=== PATIENT | female | born 1975 | race Caucasian/White ===

== ENCOUNTER 2017-12-08 11:32 | Inpatient (IN) | payer MEDICAID ==
[~2017-12-08] VITALS: Ht 154.9 cm; Wt 80.4 kg
[2017-12-08] MEDS ORDERED: LOSARTAN POTASS25 M1 PO (16:14)
[2017-12-08 16:27] LABS: BASOPHIL % 0.2 % (0-2); PLATELET COUNT 352 x10^3mcL (130-400)
[2017-12-08 16:35] LABS: CALCIUM 9.4 mg/dL (8.5-10.1); CARBON DIOXIDE 23.7 mmol/L (21-32); CREATININE SERUM 3.8 mg/dL (0.6-1.0); POTASSIUM SERUM 3.3 mmol/L (3.5-5.1)
[2017-12-08 17:32] VITALS: BP 159/98
[2017-12-08 17:41] VITALS: BP 159/98
[2017-12-08 17:42] LABS: T3 TOTAL 0.71 ng/mL
[2017-12-08 17:43] VITALS: Ht 154.9 cm; Wt 80.4 kg
[2017-12-08 18:08] LABS: FREE T4 1.26 ng/dL (0.76-1.46); FREE THYROXINE INDEX 2.5 ug/dL (1.4-4.5); MAGNESIUM 2.1 mg/dL (1.8-2.4); PHOSPHOROUS 2.9 mg/dL (2.5-4.9); T4(THYROXINE) 7.5 ug/dL (4.7-13.3)
[2017-12-08 18:14] LABS: CHOLESTEROL/HDL RATIO 12.2
[2017-12-08 19:32] LABS: UA SPECIFIC GRAVITY <=1.005 (1.005-1.035); microscopic required? YES; urine erythrocyte 2+ (NEGATIVE)
[2017-12-08 19:56] LABS: AMPHETAMINE QUAL UR NONE DETECTED (NEG <=1000)
[2017-12-08 21:41] VITALS: BP 150/86
[2017-12-09 06:15] LABS: BASOPHIL % 0.3 % (0-2); CALCIUM 8.6 mg/dL (8.5-10.1); CARBON DIOXIDE 22.8 mmol/L (21-32); CREATININE SERUM 3.9 mg/dL (0.6-1.0); PLATELET COUNT 334 x10^3mcL (130-400); POTASSIUM SERUM 3.7 mmol/L (3.5-5.1)
[2017-12-09 06:18] VITALS: BP 146/85
[2017-12-09 06:57] LABS: RED CELL DISTRIBUTION WIDTH 18.8 % (11.5-14.5)
[2017-12-09 11:31] VITALS: BP 155/96
[2017-12-09 15:00] VITALS: BP 138/78
[2017-12-09 20:47] VITALS: BP 84/46
[2017-12-09 22:25] VITALS: BP 96/60
[2017-12-09 23:57] VITALS: BP 92/54
[2017-12-10] VITALS (10 sets, daily range): BP systolic 90–130; BP diastolic 52–76
[2017-12-10 05:49] LABS: PLATELET COUNT 256 x10^3mcL (130-400)
[2017-12-10 06:04] LABS: CARBON DIOXIDE 19.3 mmol/L (21-32); CREATININE SERUM 3.8 mg/dL (0.6-1.0); MAGNESIUM 1.7 mg/dL (1.8-2.4); POTASSIUM SERUM 4.1 mmol/L (3.5-5.1)
[2017-12-10 15:05] LABS: BAND NEUTROPHIL 30 % (0-10); METAMYELOCTE 2 % (0-2); MONOCYTE 3 % (0-7); SEGMENTED NEUTROPHILS 60 % (37-75); rbc morphology (normal/abnorm) ABNORMAL (NORMAL)
[2017-12-10 15:06] LABS: PLATELET MORPHOLOGY LARGE PLATELET SEEN
[2017-12-11 05:41] VITALS: BP 107/68
[2017-12-11 07:25] LABS: CALCIUM 8.1 mg/dL (8.5-10.1); CARBON DIOXIDE 18.6 mmol/L (21-32); CREATININE SERUM 2.8 mg/dL (0.6-1.0); MAGNESIUM 2.4 mg/dL (1.8-2.4); PHOSPHOROUS 4.4 mg/dL (2.5-4.9); POTASSIUM SERUM 3.6 mmol/L (3.5-5.1)
[2017-12-11 08:01] LABS: PLATELET COUNT 265 x10^3mcL (130-400)
[2017-12-11 08:07] LABS: RED CELL DISTRIBUTION WIDTH 19.3 % (11.5-14.5)
[2017-12-11 09:38] VITALS: BP 113/64
[2017-12-11 10:23] LABS: BAND NEUTROPHIL 27 % (0-10); BASOPHIL 0 % (0-2); METAMYELOCTE 3 % (0-2); MONOCYTE 3 % (0-7); SEGMENTED NEUTROPHILS 58 % (37-75)
[2017-12-11 10:24] LABS: PLATELET MORPHOLOGY PLATELETS NORMAL; rbc morphology (normal/abnorm) ABNORMAL (NORMAL)
[2017-12-11 11:43] LABS: RED BLOOD CELLS 3.25 M/mm3 (4.10-5.10)
[2017-12-11 11:45] LABS: TOTAL IRON BINDING CAPACITY 174 ug/dL (250-450)
[2017-12-11 11:46] LABS: IRON 11 ug/dL (50-170)
[2017-12-11 12:14] VITALS: BP 124/77
[2017-12-11 16:45] VITALS: BP 121/74
[2017-12-11 18:40] VITALS: BP 144/93
[2017-12-11 21:26] VITALS: BP 128/79
[2017-12-12 06:18] VITALS: BP 131/86
[2017-12-12 06:56] LABS: PLATELET COUNT 312 x10^3mcL (130-400)
[2017-12-12 06:59] LABS: BASOPHIL % 0 % (0-2); RED CELL DISTRIBUTION WIDTH 19.6 % (11.5-14.5)
[2017-12-12 07:05] LABS: CALCIUM 8.4 mg/dL (8.5-10.1); CARBON DIOXIDE 18.1 mmol/L (21-32); CREATININE SERUM 2.1 mg/dL (0.6-1.0); MAGNESIUM 1.9 mg/dL (1.8-2.4); PHOSPHOROUS 4.1 mg/dL (2.5-4.9); POTASSIUM SERUM 3.7 mmol/L (3.5-5.1)
[2017-12-12 09:01] VITALS: BP 140/87
[2017-12-12] MEDS ORDERED: FLO4 PO (10:15)
[2017-12-12] MEDS ORDERED: COL100 PO (10:15)
[2017-12-12] MEDS ORDERED: LAC PO (10:15)
[2017-12-12] MEDS ORDERED: BAC PO (10:17)
[2017-12-12 12:59] VITALS: BP 140/87
[2017-12-12 15:58] VITALS: BP 148/88
== END 2017-12-12 17:03 | disposition home or self-care (01) | DRG 710 ==
LOC: ED 11:32 → MU 16:56 → DU 16:56 → MU 12-11 10:42
PROVIDERS: Emergency Medicine; Family Medicine; Radiology Diagnostic Radiology
PROC: 0T9130Z Drainage of Left Kidney with Drainage Device, Percutaneous Approach (ICD-10-PCS; 2017-12-09)
PROC: 0T9030Z Drainage of Right Kidney with Drainage Device, Percutaneous Approach (ICD-10-PCS; principal; 2017-12-09 14:00)
DX: A41.9 Sepsis, unspecified organism (principal); N17.0 Acute kidney failure with tubular necrosis; E43 Unspecified severe protein-calorie malnutrition; N13.2 Hydronephrosis with renal and ureteral calculous obstruction; I10 Essential (primary) hypertension; R65.20 Severe sepsis without septic shock; N39.0 Urinary tract infection, site not specified; E87.1 Hypo-osmolality and hyponatremia; E87.6 Hypokalemia; R73.03 Prediabetes; E78.1 Pure hyperglyceridemia; D64.9 Anemia, unspecified; E83.42 Hypomagnesemia
CPT/HCPCS: 50430; 50432; 83880; 84439; 94150; J0696; J1200; J1580; J1885; J2001; J2250; J2310; J3010; J3475; J3490; J7030; J7040; J7120; Q0092; Q9967

== ENCOUNTER 2020-05-07 14:04 | Emergency (ER) | payer SELFPAY ==
[~2020-05-07] VITALS: Ht 154.9 cm; Wt 77.6 kg
[~2020-05-07 14:04] MED LIST: BAC PO; COL100 PO; FLO4 PO; LAC PO; LOSARTAN POTASS25 M1 PO
[2020-05-07 14:14] VITALS: Ht 154.9 cm; Wt 77.6 kg
[2020-05-07 15:23] VITALS: BP 105/62
== END 2020-05-07 15:23 | disposition home or self-care (01) ==
LOC: ED 14:04
DX: K59.00 Constipation, unspecified (principal); I10 Essential (primary) hypertension; Z87.442 Personal history of urinary calculi
CPT/HCPCS: Q0092; Q0162

== ENCOUNTER 2020-11-30 13:08 | Emergency (ER) | payer SELFPAY ==
[~2020-11-30] VITALS: Ht 149.9 cm; Wt 76.2 kg
[2020-11-30 13:20] VITALS: Ht 149.9 cm; Wt 76.2 kg
[2020-11-30 15:04] LABS: BASOPHIL % 0.1 % (0.2-1.3)
[2020-11-30 15:05] LABS: PLATELET COUNT 583 x10^3mcL (179-408); RED CELL DISTRIBUTION WIDTH 16.5 % (12.3-17.7)
[2020-11-30 15:48] LABS: ALBUMIN 3.4 g/dL (3.4-5.0); BILIRUBIN TOTAL 2.2 mg/dL (0.20-1.00); CALCIUM 8.9 mg/dL (8.5-10.1); CARBON DIOXIDE 12.8 mmol/L (21-32)
[2020-11-30 16:04] LABS: TOTAL PROTEIN, SERUM 8.8 g/dL (6.4-8.2)
[2020-11-30 16:05] LABS: CREATININE SERUM 10.2 mg/dL (0.6-1.0); POTASSIUM SERUM 5.6 mmol/L (3.5-5.1)
[2020-11-30 17:07] LABS: microscopic required? YES
[2020-11-30 17:10] LABS: urine erythrocyte 3+ (NEGATIVE)
[2020-11-30 19:02] VITALS: BP 103/57
== END 2020-11-30 19:02 | disposition short-term general hospital (02) ==
LOC: ED 13:08
PROVIDERS: Emergency Medicine
DX: A41.9 Sepsis, unspecified organism (principal); R65.20 Severe sepsis without septic shock; N13.9 Obstructive and reflux uropathy, unspecified; N19 Unspecified kidney failure; E87.5 Hyperkalemia; I10 Essential (primary) hypertension; Z87.442 Personal history of urinary calculi
CPT/HCPCS: 36600; J0696; J2543; J7030; J7040; J7060